=== PATIENT | male | born 1955 | race Caucasian/White ===

== ENCOUNTER → 2018-07-01 11:09 | Outpatient (BNVA) | payer MEDICARE, SELFPAY | PROVIDERS: PCP Family Medicine; Visit Provider Internal Medicine Cardiovascular Disease | DX: I25.10 Atherosclerotic heart disease of native coronary artery without angina pectoris (principal); I25.2 Old myocardial infarction; E78.5 Hyperlipidemia, unspecified; I10 Essential (primary) hypertension | CPT/HCPCS: 99213 ==

== ENCOUNTER 2018-08-04 19:48 | Outpatient (REF) | payer MEDICARE, SELFPAY ==
[2018-08-04 22:18] LABS: Cholesterol 108 mg/dL (50-200); HDL Cholesterol 35 mg/dL (40-60); LDL CHOLESTEROL 66 mg/dL (<100); Triglyceride 51 mg/dL (30-150)
== END 2018-08-04 20:08 ==
LOC: NCHCN 19:48
PROVIDERS: PCP Family Medicine; Visit Provider Family Medicine
DX: E78.5 Hyperlipidemia, unspecified (principal)
CPT/HCPCS: 80061; 83721

== ENCOUNTER 2018-10-21 13:49 | Outpatient (REF) | payer MEDICARE, SELFPAY ==
[2018-10-21 22:31] LABS: ALT 29 U/L (12-78); AST 20 U/L (15-37); Albumin 3.6 g/dL (3.4-5.0); Alkaline Phosphatase 89 U/L (46-116); Anion Gap 9.5 mmol/L (3-11); BUN 15 mg/dL (7-18); Bilirubin, Total 0.3 mg/dL (0.2-1.0); CO2 24.5 mmol/L (21.0-32.0); CREATININE 0.89 mg/dL (0.70-1.30); Calcium 9.2 mg/dL (8.5-10.1); Chloride 106 mmol/L (98-107); Glucose 102 mg/dL (70-100); Potassium 4.7 mmol/L (3.5-5.1); Sodium 140 mmol/L (136-145); TSH (W/Ref FT4) 2.29 uIU/mL (0.358-3.74); Total Protein 7.1 g/dL (6.4-8.2); Vitamin B12 650 pg/mL (193-986)
== END 2018-10-21 14:09 ==
LOC: NCHCN 13:49
PROVIDERS: PCP Family Medicine; Visit Provider Family Medicine
DX: G56.00 Carpal tunnel syndrome, unspecified upper limb (principal); E78.5 Hyperlipidemia, unspecified; I25.10 Atherosclerotic heart disease of native coronary artery without angina pectoris; M54.5 Low back pain
CPT/HCPCS: 80053; 82607; 84443

== ENCOUNTER → 2019-07-07 10:47 | Outpatient (BNVA) | payer MEDICARE, SELFPAY | PROVIDERS: PCP Family Medicine; Referring Provider Family Medicine; Visit Provider Internal Medicine Cardiovascular Disease | DX: I25.10 Atherosclerotic heart disease of native coronary artery without angina pectoris (principal); I10 Essential (primary) hypertension; F17.290 Nicotine dependence, other tobacco product, uncomplicated; E78.5 Hyperlipidemia, unspecified | CPT/HCPCS: 99214 ==

== ENCOUNTER 2020-02-20 13:04 | Outpatient (CLI) | payer OTHER, SELFPAY ==
--- NOTE | 2020-02-20 11:15 | DI.RAD_ITS ---
EXAM: XR KNEE RT 3V AP,LAT,MALICK CLINICAL HISTORY: RIGHT KNEE PAIN. TECHNIQUE: 2D digital imaging was performed. COMPARISON: No exams were available for comparison FINDINGS: There is periarticular spurring of the posterior patella. The articular surfaces are otherwise well maintained. Bones are normally mineralized and intact. Vascular calcifications are seen in the soft tissues. No significant joint effusion is seen. IMPRESSION: Mild degenerative changes of the right knee. DATA REPOSITORY: RADIATION DOSE DELIVERED:
== END 2020-02-20 13:24 ==
PROVIDERS: PCP Family Medicine; Referring Provider Family Medicine; Visit Provider Student in an Organized Health Care Education/Training Program
DX: M25.561 Pain in right knee (principal); M17.11 Unilateral primary osteoarthritis, right knee; S83.8X1A Sprain of other specified parts of right knee, initial encounter; X58.XXXA Exposure to other specified factors, initial encounter
CPT/HCPCS: 73562; 99214

== ENCOUNTER → 2020-02-21 11:01 | Outpatient (BNVA) | payer OTHER, SELFPAY | PROVIDERS: PCP Family Medicine; Referring Provider Family Medicine; Visit Provider Internal Medicine Cardiovascular Disease | DX: I25.10 Atherosclerotic heart disease of native coronary artery without angina pectoris (principal); I10 Essential (primary) hypertension; G47.33 Obstructive sleep apnea (adult) (pediatric) | CPT/HCPCS: 99214 ==

== ENCOUNTER 2020-03-09 08:31 | Outpatient (REF) | payer OTHER, SELFPAY ==
[2020-03-09 19:09] LABS: Chloride 100 mmol/L (98-107)
[2020-03-09 19:44] LABS: Anion Gap 10.3 mmol/L (3-11); BUN 15 mg/dL (7-18); CO2 24.7 mmol/L (21.0-32.0); CREATININE 1.01 mg/dL (0.70-1.30); Calcium 8.9 mg/dL (8.5-10.1); Glucose 105 mg/dL (74-106); Potassium 4.2 mmol/L (3.5-5.1); Sodium 135 mmol/L (136-145)
== END 2020-03-09 08:51 ==
LOC: NCHCN 08:31
PROVIDERS: PCP Family Medicine; Visit Provider Family Medicine
DX: Z79.899 Other long term (current) drug therapy (principal)
CPT/HCPCS: 80048

== ENCOUNTER 2020-03-30 02:40 | Outpatient (CLI) | payer OTHER, SELFPAY ==
--- NOTE | 2020-03-30 08:50 | DI.MRI_ITS ---
EXAM: MR LOWER JOINT RT WO CLINICAL HISTORY: internal derangement right knee,m23.91. TECHNIQUE: Multiplanar multisequence MRI was performed. COMPARISON: MR MRI L LOWER JOINT WO CONT from 03/05/2017 CR XR KNEE RT 3V AP,LAT,MALICK from 02/20/2020 FINDINGS: There is a moderate-sized joint effusion. There is mild edema in the fat anterior to the patella and patellar tendon. There is no evidence of fracture. The extensor mechanism appears intact. There i s mild edema the near the tibial attachment of the anterior cruciate ligament but no evidence of a fu ll-thickness tear. The posterior cruciate ligament and lateral collateral ligament complex appear in tact. There is edema around the medial collateral ligament but no focal tear. There is a horizontal , inferior surfacing tear of the posterior horn and body of the medial meniscus. There is blunting o f the apex of the posterior horn. The lateral meniscus appears intact. There is no bone contusion. There is thinning of the cartilage at the patellar apex and medial facet, extending down to bone.. IMPRESSION: Inferior surfacing tear of the posterior horn and body of the medial meniscus. Anterior cruciate lig ament and medial collateral ligament sprains. Chondromalacia of the patella. DATA REPOSITORY:
== END 2020-03-30 03:00 ==
PROVIDERS: PCP Family Medicine; Visit Provider Student in an Organized Health Care Education/Training Program
DX: M23.91 Unspecified internal derangement of right knee (principal); S83.511A Sprain of anterior cruciate ligament of right knee, initial encounter; S83.411A Sprain of medial collateral ligament of right knee, initial encounter; S83.241A Other tear of medial meniscus, current injury, right knee, initial encounter
CPT/HCPCS: 73721

== ENCOUNTER → 2020-04-16 08:07 | Outpatient (BNVA) | payer OTHER, SELFPAY | PROVIDERS: PCP Family Medicine; Visit Provider Student in an Organized Health Care Education/Training Program | DX: M25.561 Pain in right knee (principal); S83.241D Other tear of medial meniscus, current injury, right knee, subsequent encounter; X58.XXXD Exposure to other specified factors, subsequent encounter; I10 Essential (primary) hypertension | CPT/HCPCS: 99213 ==

== ENCOUNTER 2020-04-18 22:37 | Outpatient (REF) | payer OTHER, SELFPAY ==
[2020-04-18 21:37] LABS: Abs Immature Grans 0.03 10^3/uL (0.0-0.06); Absolute Basophil Count 0.07 10^3/uL (0.0-0.2); Absolute Lymphocyte Count 1.76 10^3/uL (1.2-3.4); Absolute Monocyte Count 0.61 10^3/uL (0.1-0.8); Basophils % 0.9; Eosinophils % 3.8; HCT 42.9 % (40.0-50.0); Immature Grans % 0.4; Lymphocytes % 22.4; MCH 29.4 pg (27.0-33.0); MCHC 32.6 % (32.0-36.0); MCV 89.9 fL (80-95); MPV 12.7 fL (8.0-11.0); Monocytes % 7.8; Neutrophils % 64.7; Nucleated RBC 0 %; Platelet Count 183 10^3/uL (130-400); RBC 4.77 10^6/uL (4.36-5.78); RDW 12.7 % (11.8-14.1); RDW-SD 41.9 fL; WBC 7.87 10^3/uL (4.4-10.8)
[2020-04-18 21:52] LABS: ALT 30 U/L (16-63); AST 21 U/L (15-37); Albumin 3.8 g/dL (3.4-5.0); Alkaline Phosphatase 83 U/L (46-116); Anion Gap 12.4 mmol/L (3-11); BUN 18 mg/dL (7-18); Bilirubin, Total 0.3 mg/dL (0.2-1.0); CO2 25.6 mmol/L (21.0-32.0); CREATININE 0.91 mg/dL (0.70-1.30); Chloride 103 mmol/L (98-107); Glucose 133 mg/dL (74-106); Sodium 141 mmol/L (136-145)
== END 2020-04-18 22:57 ==
LOC: NCHCN 22:37
PROVIDERS: PCP Family Medicine; Visit Provider Physician Assistant Medical
DX: M25.561 Pain in right knee (principal); Z01.818 Encounter for other preprocedural examination
CPT/HCPCS: 80053; 85025

== ENCOUNTER 2020-05-04 03:45 | Outpatient (CLI) | payer OTHER, SELFPAY ==
[2020-05-06 18:00] LABS: COVID-19 RT-PCR Result NEGATIVE (Negative)
== END 2020-05-04 04:05 ==
PROVIDERS: PCP Family Medicine; Visit Provider Student in an Organized Health Care Education/Training Program
DX: S83.241A Other tear of medial meniscus, current injury, right knee, initial encounter (principal)
CPT/HCPCS: U0003

== ENCOUNTER 2020-05-09 09:13 | Day surgery (SDC) | payer OTHER, SELFPAY ==
[2020-05-09] VITALS (9 sets, daily range): BP systolic 121–187; BP diastolic 54–110; PULSE 53–63; RESP 9–18; TEMP 36.2–36.5; O2SAT 95–100
[2020-05-09] MEDS: Bupivacaine 0.25% Pres-Free 10 ML VIAL (02:45)
[2020-05-09] MEDS: Lactated Ringers 1,000 ML 80 ML IV (10:05)
--- NOTE | 2020-05-09 11:12 | W.PM.DSUDISC ---
Discharge Plan Disposition Patient Disposition: HOME Condition: Good Discharge Details Reason For Visit: Right Knee Medial Meniscus Tear Attending Provider: Daniel Marroquin Primary Care Provider: Karen Aguilar V Home Meds and New Rx's Prescriptions: New acetaminophen 500 mg tablet 1,000 mg PO Q8H PRN (Reason: pain) Qty: 90 RF: 3 ibuprofen 600 mg tablet 600 mg PO TID PRNQty: 90 RF: 3 oxycodone 10 mg tablet 10 mg PO Q4H PRNQty: 18 RF: 0 Continued furosemide 20 mg tablet 20 mg PO DAILY Qty: 90 RF: 6 metoprolol succinate 50 MG tablet extended release 24 hr 50 mg PO HS Qty: 30 RF: 6 lisinopril 2.5 MG tablet 2.5 mg PO HS Qty: 30 RF: 6 nitroglycerin [Nitrostat] 0.4 MG tablet, sublingual 0.4 mg Sublingual ONCE RF: 0 aspirin 81 MG tablet,chewable 81 mg PO DAILY Qty: 90 RF: 4 methadone 10 mg tablet 10 mg PO QID RF: 0 oxycodone 15 mg tablet 15 mg PO 6X/DAY RF: 0 rosuvastatin [Crestor] 10 MG tablet 10 mg PO HS RF: 0 Discontinued alprazolam 0.5 mg tablet 0.5 mg PO ONCE PRN (Reason: claustrophobia) Qty: 2 RF: 0 ibuprofen 800 MG tablet 400 mg PO PRN PRNRF: 0 Discharge Instructions Stand Alone Forms: [facility] Referrals: Daniel Marroquin MD [ [facility] STAFF PHYSICIAN] - Equipment/Supplies: Partial Weight Bearing Crutches Activity:: Elevate Remove Dressings/Wound Care:: 72 hours Shower/Bathe:: 72 hours Diet:: As Tolerated Discharge Orders Discharge Orders: Discharge Order (Routine); Ordered 05/09/20 Ordered By: Daniel Marroquin DS: Diagnosis Discharge Diagnosis (1) Tear of medial meniscus of right knee: Status: Acute
[2020-05-09] MEDS: ceFAZolin 3,000 MG in Normal Saline 100 ML 200 MG IVPB (12:45)
[2020-05-09] MEDS: Bupivacaine 0.5% Pres-Free 30 ML VIAL (13:28)
[2020-05-09] MEDS: HYDROmorphone 2 MG/ML VIAL IVP (14:05)
[2020-05-09] MEDS: Methadone 10 MG TAB PO (14:21)
--- NOTE | 2020-05-09 19:29 | W.PM.OP ---
Date of service: 05/09/20 Time of Service: 13:44 Operative Note Operative Note DATE OF PROCEDURE: 05/09/20 PRE-OP DIAGNOSIS: Right knee medial meniscus tear POST-OP DIAGNOSIS: same PROCEDURE: Right knee arthroscopic partial medial meniscectomy SURGEON: Daniel Marroquin ANESTHESIA: GETA ESTIMATED BLOOD LOSS: 0 PATHOLOGY: none sent TOURNIQUET TIME: 0 COMPLICATIONS: None Patient was transported to: PACU Patient's condition: stable Indications: I have seen Philippe in clinic for symptoms of a meniscus tear. This was confirmed based on MRI and exam findings. Nonoperative measures were exhausted but disability and pain persisted. I discussed knee arthroscopy with meniscal intervention with the patient. I reviewed the risks of the procedure to include, but not limited to, bleeding, infection, pain, stiffness, damage to nerves or vessels, recurrence, blood clot. Despite these risks, the patient elected to proceed. Findings: A diagnostic arthroscopy was performed with the following findings: Suprapatellar Pouch: No significant inflammation, No loose bodies Medial Compartment: Complex medial meniscal tear with involvement of the root, partially intact meniscal root, Grade II chondromalacia, No loose bodies Notch: ACL and PCL were intact Lateral Compartment: No meniscal tear, Intact meniscal root, Grade I chondromalacia, No loose bodies Patellofemoral Compartment: No significant chondromalacia, No apparent patellar maltracking Procedure Description: Philippe was greeted in the preoperative holding area where the correct side was identified and marked. The consent was reviewed with the patient and signed. The history and physical was updated. All questions were answered. Philippe was taken back to the operating room. The patient was placed into the supine position on the operating room table. A nonsterile tourniquet was placed high onto the leg but not used. All bony prominences were well padded. Prophylactic antibiotics in the form of Cefazolin were administered. The right leg was then prepped with Chloraprep and draped in a standard fashion with stockinette and extremity drape. A timeout to confirm correct identity, side and site, procedure, allergies, anesthesia, and medical concerns was performed. The leg was placed into a pneumatic leg hill, [id number]. A standard lateral portal was made at the lateral border of the patella tendon in line with the inferior pole of the patella, soft spot. The skin and deep tissue was incised sharply and the blunt trochar was inserted atraumatically. A diagnostic arthroscopy was performed and the findings are listed above. The suprapatellar pouch had no significant inflammatory change. The patellofemoral articulation showed no articular damage as well as good tracking. The lateral gutter had no loose bodies and the medial gutter had no loose bodies and a small peripheral osteophyte. The knee was brought into some valgus stress in extension to open the medial compartment. A medial portal was made, localized by a spinal needle. The portal was created with an #11 blade through skin and capsule under direct visualization avoiding any meniscal injury. A probe was then inserted into the medial compartment. The medial compartment was fully inspected. The chondral surface of the tibia showed Grade II chondromalacia and the surface of the femur showed Grade I chondromalacia. The medial meniscus had a complex tear involving the horn and root with a large displaced fragment posteriorly. After evaluation, the meniscus was debrided down to a stable base using a series of biters and arthroscopic debra. It was probed afterwards to confirm that the tear had been removed and the meniscus was stable. The notch was then inspected which showed an intact ACL and an intact PCL. The leg was then brought into a figure of 4 position. The lateral compartment was fully inspected with the arthroscope and a probe. The chondral surface of the lateral femur showed no significant chondromalacia. The chondral surface of the lateral tibia showed no significant chondromalacia. The lateral meniscus had no meniscal tear. Cartilage surfaces were debrided of any flaps, leaving any intact fibers. The arthroscope was brought back into the suprapatellar pouch and the leg was in full extension. The knee was thoroughly irrigated with the arthroscopic fluid on high flow and pressure. Inflow was stopped and excess fluid was removed. The wounds were closed with 4-0 Nylon. They were dressed with Xeroform, 4x4 gauze, ABD pad, Kerlix and an RONIT wrap. A cryo-cuff was applied. The patient tolerated the procedure well and was returned to the Same Day Surgery area in a stable condition suffering no known complication.
== END 2020-05-09 16:06 | disposition home or self-care (01) ==
PROVIDERS: PCP Family Medicine; Visit Provider Student in an Organized Health Care Education/Training Program
PROC: (CPT 29870; principal; 2020-05-09 11:15)
DX: S83.241A Other tear of medial meniscus, current injury, right knee, initial encounter (principal); F17.210 Nicotine dependence, cigarettes, uncomplicated; G47.33 Obstructive sleep apnea (adult) (pediatric)
CPT/HCPCS: 29881; 76942; J0690; J1100; J1885

== ENCOUNTER → 2020-06-18 08:00 | Outpatient (BNVA) | payer OTHER, SELFPAY | PROVIDERS: PCP Family Medicine; Referring Provider Family Medicine; Visit Provider Student in an Organized Health Care Education/Training Program | DX: S83.241D Other tear of medial meniscus, current injury, right knee, subsequent encounter (principal); X58.XXXD Exposure to other specified factors, subsequent encounter; Z98.890 Other specified postprocedural states; I10 Essential (primary) hypertension ==

== ENCOUNTER → 2020-10-15 11:19 | Outpatient (BNVA) | payer OTHER, SELFPAY | PROVIDERS: PCP Family Medicine; Referring Provider Family Medicine; Visit Provider Internal Medicine Cardiovascular Disease | DX: I10 Essential (primary) hypertension (principal); I25.10 Atherosclerotic heart disease of native coronary artery without angina pectoris | CPT/HCPCS: 99214; 99442 ==

== ENCOUNTER 2021-03-01 08:52 | Outpatient (REF) | payer OTHER, SELFPAY ==
[2021-03-01 14:47] LABS: Hemoglobin A1C 6.2 % (<5.7)
[2021-03-01 14:52] LABS: ALT 33 U/L (16-63); AST 20 U/L (15-37); Albumin 3.7 g/dL (3.4-5.0); Alkaline Phosphatase 97 U/L (46-116); Anion Gap 10.7 mmol/L (3-11); BUN 24 mg/dL (7-18); Bilirubin, Total 0.3 mg/dL (0.2-1.0); CO2 24.3 mmol/L (21.0-32.0); Calcium 8.7 mg/dL (8.5-10.1); Calculated LDL 79 mg/dL (<100); Chloride 104 mmol/L (98-107); Cholesterol 128 mg/dL (<200); Glucose 108 mg/dL (74-106); HDL Cholesterol 26 mg/dL (40-60); Potassium 4.7 mmol/L (3.5-5.1); Sodium 139 mmol/L (136-145); Total Protein 7.1 g/dL (6.4-8.2); Triglyceride 118 mg/dL (<150)
[2021-03-07 16:47] LABS: Testosterone, Free 2.48 ng/dL (3.67-13.9); Testosterone, Total 99 ng/dL (240-950)
== END 2021-03-01 08:53 | disposition home or self-care (01) ==
LOC: NCHCN 08:52
PROVIDERS: PCP Family Medicine; Visit Provider Family Medicine
DX: I25.10 Atherosclerotic heart disease of native coronary artery without angina pectoris (principal); M54.5 Low back pain; G89.29 Other chronic pain; E78.5 Hyperlipidemia, unspecified
CPT/HCPCS: 80053; 80061; 84402; 84403; 83036

== ENCOUNTER 2021-11-08 16:42 | Outpatient (REF) | payer OTHER, SELFPAY ==
[2021-11-08 14:59] LABS: ALT 34 U/L (16-63); AST 22 U/L (15-37); Alkaline Phosphatase 105 U/L (46-116); Anion Gap 11.9 mmol/L (3-11); BUN 18 mg/dL (7-18); Bilirubin, Total 0.4 mg/dL (0.2-1.0); CO2 22.1 mmol/L (21.0-32.0); CREATININE 0.9 mg/dL (0.70-1.30); Calcium 9.3 mg/dL (8.5-10.1); Chloride 104 mmol/L (98-107); Glucose 108 mg/dL (74-106); Potassium 4.7 mmol/L (3.5-5.1); Sodium 138 mmol/L (136-145); Total Protein 7.5 g/dL (6.4-8.2)
== END 2021-11-08 16:43 | disposition home or self-care (01) ==
LOC: NCHCN 16:42
PROVIDERS: PCP Family Medicine; Visit Provider Family Medicine
DX: R73.03 Prediabetes (principal); E78.5 Hyperlipidemia, unspecified; I25.10 Atherosclerotic heart disease of native coronary artery without angina pectoris; M54.59 Other low back pain
CPT/HCPCS: 80053; 83036

== ENCOUNTER 2021-11-08 17:36 | Outpatient (REF) | payer OTHER, SELFPAY | END 2021-11-08 17:37 | disposition home or self-care (01) | LOC: NCHCN 17:36 | PROVIDERS: PCP Family Medicine; Visit Provider Family Medicine ==

== ENCOUNTER → 2022-01-10 09:23 | Outpatient (BNVA) | payer OTHER, SELFPAY | PROVIDERS: PCP Family Medicine; Referring Provider Family Medicine; Visit Provider Physical Therapy Assistant | DX: K59.00 Constipation, unspecified (principal); K62.5 Hemorrhage of anus and rectum | CPT/HCPCS: 99213 ==

== ENCOUNTER → 2022-06-13 08:57 | Outpatient (BNVA) | payer OTHER, SELFPAY | PROVIDERS: PCP Family Medicine; Referring Provider Family Medicine; Visit Provider Internal Medicine Cardiovascular Disease | DX: I25.10 Atherosclerotic heart disease of native coronary artery without angina pectoris (principal); I10 Essential (primary) hypertension; E78.5 Hyperlipidemia, unspecified | CPT/HCPCS: 99214; 99443 ==

== ENCOUNTER 2022-10-23 16:45 | Outpatient (REF) | payer OTHER, SELFPAY ==
[2022-10-23 18:59] LABS: HCT 38.5 % (40.0-50.0); HGB 12.3 g/dL (13.5-17.5); MCH 27.7 pg (27.0-33.0); MCHC 31.9 % (32.0-36.0); MCV 87 fL (80-95); MPV 11.5 fL (8.0-11.0); Platelet Count 266 10^3/uL (130-400); RBC 4.44 10^6/uL (4.36-5.78); RDW 14.3 % (11.8-14.1); RDW-SD 45.2 fL; WBC 9.81 10^3/uL (4.4-10.8)
[2022-10-23 19:01] LABS: ESR 72 mm/hr (0-20)
[2022-10-23 19:16] LABS: Hemoglobin A1C 6.1 % (<5.7)
[2022-10-23 19:18] LABS: ALT 25 U/L (16-63); AST 18 U/L (15-37); Albumin 3.3 g/dL (3.4-5.0); Alkaline Phosphatase 86 U/L (46-116); Anion Gap 4.3 mmol/L (3-11); BUN 19 mg/dL (7-18); Bilirubin, Total 0.3 mg/dL (0.2-1.0); C-Reactive Protein 5.13 mg/dL (0.0-0.3); CO2 26.7 mmol/L (21.0-32.0); CREATININE 0.9 mg/dL (0.70-1.30); Calcium 8.9 mg/dL (8.5-10.1); Chloride 100 mmol/L (98-107); Creatine Kinase 97 U/L (39-308); Estimated GFR 94.19 (mL/min/1.73m2); Glucose 118 mg/dL (74-106); Potassium 3.7 mmol/L (3.5-5.1); Sodium 131 mmol/L (136-145); TSH (W/Ref FT4) 1.72 uIU/mL (0.36-3.74); Total Protein 7.8 g/dL (6.4-8.2)
[2022-10-23 19:56] LABS: Vitamin B12 419 pg/mL (193-986)
[2022-10-25 22:10] LABS: Rheumatoid Factor <8.6 IU/mL (<12.0)
[2022-10-27 08:24] LABS: Lyme Ab w Rflx to Lyme Confirm Negative (Negative)
[2022-10-27 11:05] LABS: PSA, Screening 0.3 ng/mL (<=4.5)
[2022-10-27 14:53] LABS: ANA Interpretation Negative (Negative)
[2022-10-27 16:51] LABS: Anaplasma phagocytophilum Negative (Negative); B. miyamotoi PCR Negative (Negative); Babesia divergens/MO-1 Negative (Negative); Babesia duncani Negative (Negative); Babesia microti Negative (Negative); Ehrlichia chaffeensis Negative (Negative); Ehrlichia ewingii/canis Negative (Negative); Ehrlichia muris eauclairensis Negative (Negative)
[2022-10-29 15:02] LABS: Albumin 49.6 % (55.8-66.1); Albumin g/dL 3.6 g/dL (3.6-5.2); Comment (See Note); Total Protein 7.2 g/dL (6.3-8.2)
[2022-10-29 15:52] LABS: Immunotyping, Serum (See Note)
== END 2022-10-23 16:46 | disposition home or self-care (01) ==
LOC: NCHCN 16:45
PROVIDERS: PCP Family Medicine; Visit Provider Family Medicine
DX: M79.10 Myalgia, unspecified site (principal); M89.9 Disorder of bone, unspecified
CPT/HCPCS: 80053; 82550; 84153; 85027; 85652; 87798; 82607; 83036; 84165; 84443; 86038; 86140; 86320; 86431; 86618

== ENCOUNTER 2023-02-20 13:54 | Outpatient (REF) | payer OTHER, SELFPAY ==
[2023-02-20 15:14] LABS: ESR 31 mm/hr (0-20)
[2023-02-20 15:35] LABS: Hemoglobin A1C 6.4 % (<5.7)
== END 2023-02-20 13:55 | disposition home or self-care (01) ==
LOC: NCHCN 13:54
PROVIDERS: PCP Family Medicine; Visit Provider Family Medicine
DX: M35.3 Polymyalgia rheumatica (principal); R06.09 Other forms of dyspnea; R73.03 Prediabetes
CPT/HCPCS: 85652; 83036; 86140

== ENCOUNTER 2023-02-26 01:17 | Outpatient (CLI) | payer OTHER, SELFPAY ==
--- NOTE | 2023-02-26 09:15 | DI.NM_ITS ---
APPROVED REPORT Exam: Pharmacologic Patient Location: Out-Patient Room/Bed: Stress Nurse: Darlyn Rodriguez RN Ordering Provider:SIERRA BECKMANANDREW, Contact Number: [phone] BMI: 44.29 Baseline Rhythm: Sinus Bradycardia Indications: PANIAGUA Medical History Medical History: HTN, prediabetes, CAD, CHARLY, dizziness, vertigo, hypotestosteronism, dyslipidemia, GE RD, R knee pain, NSTEMI Cardiac Medications: Rosuvastatin, oxycodone, nitro, metoprolol succinate, methadone, meclizine, amaury nopril, aspririn Allergies: Varenciline tartrate, fentanyl Cardiac Risk Factors: Family hx, HTN, HLD, CVD, prediabetesm smoker (vape), obesity Previous Cardiac Procedures: Cardiac cath with stents x3 Pretest Chest Pain Characteristics: None Exercise History: None Physical Disabilities: None Lung Sounds: Clear to auscultation Heart Sounds: Regular Stress Test Details Test: Exercise stress converted to pharmacologic stress due to failure to obtain a diagnostic stres s test. Reason for pharmacologic stress test: changed from exercise stress test due to inability to reach t arget heart rate. Nuclear Acquisition: Rest Tc-99m/Stress Tc-99m 1 day Rest Isotope: Tc-99m Sestamibi. Dose: 15.0 Date: 02/26/2023 Injection Time: 0920 Stress Isotope: Tc-99m Sestamibi. Dose: 45.0 Date: 02/26/2023 Injection Time: 1112 HR Resting HR Supine: 56 bpm Max Heart Rate (APMHR): 154.376697 bpm Resting HR Standin bpm Target HR (85% APMHR): 130.922928 bpm Max HR Achieved: 121 bpm % of APMHR: 78.57 Recovery HR: 71 bpm HR response to stress: Normal HR response to stress BP Resting BP Supine: 162/72 mmHg Resting BP Standin/80 mmHg Max BP: 200/90 mmHg Recovery BP: 168/74 mmHg BP response to stress: Normal blood pressure response to stress. ECG Resting ECG: Sinus Rhythm Ectopy: None Stress ECG: Sinus Tachycardia ST Change: Nondiagnostic low heart rate Arrhythmia: Couplet Recovery ECG: Sinus Rhythm Recovery ST Change: Nondiagnostic low heart rate Recovery Arrhythmia: rare PAC Clinical Reason for Termination: Dyspnea, Fatigue Stress Symptoms: General Fatigue, Dyspnea Angina Score: Non-Limiting Rate Pressure Product: [id number] Stress ECG Conclusion 1. Electrocardiogram was within normal limits. 2. Patient underwent testing using a combination of exercise and pharmacologic stress with regadenoso n 3. Peak heart rate achieved was 79% of predicted for age 4. The electrocardiographic portion of the test was nondiagnostic due to inadequate heart rate 5. See MPI report Stress Test Summary STAGE Time (mins) Speed (mph) Grade (%) HR BP SpO2 SYMPTOMS METS Supine 56 162/72 Standing 67 180/80 Mod-severe dyspnea 1 3 1.7 10 113 Mod-severe dyspnea 4.5 1 min post Lexiscan injection 121 200/90 Mod-severe dyspnea 3 min post Lexiscan injection 75 190/70 Dyspnea resolving 6 min post Lexiscan injection 71 168/74 All symptoms resolved Patient transitioned to walking lexiscan due to inability to reach target heart rate due to fatigue a nd mod-severe dyspnea. Speed decreased to 0.9 mph at a 0% grade. MPI Conclusion Myocardial perfusion is normal. There is no ischemia or evidence of prior infarction EF is 57% with normal wall motion Radiologist Interpretation Radiologist agrees with Bath Steward's Interpretation. Radiologist Interpretation by: Haley Celis MD Interpretation Date/Time: 02/26/2023 17:32:07
[2023-02-26] MEDS: Regadenoson 0.4 MG/5 ML SYR IVP (13:17)
== END 2023-02-26 01:37 ==
LOC: DI 01:17
PROVIDERS: PCP Family Medicine; Visit Provider Family Medicine
DX: R06.09 Other forms of dyspnea (principal)
CPT/HCPCS: 78452; 93016; 93018; 93017; J2785

== ENCOUNTER 2023-05-22 14:14 | Outpatient (REF) | payer OTHER, SELFPAY ==
[2023-05-22 15:52] LABS: ESR 42 mm/hr (0-20)
[2023-05-22 16:08] LABS: C-Reactive Protein 0.98 mg/dL (0.0-0.3)
== END 2023-05-22 14:15 | disposition home or self-care (01) ==
LOC: NCHCN 14:14
PROVIDERS: PCP Family Medicine; Visit Provider Family Medicine
DX: M35.3 Polymyalgia rheumatica (principal); R79.82 Elevated C-reactive protein (CRP)
CPT/HCPCS: 85652; 86140

== ENCOUNTER 2023-06-25 07:58 | Outpatient (CLI) | payer OTHER, SELFPAY ==
--- NOTE | 2023-06-25 07:45 | RT.EKG_ITS ---
APPROVED REPORT Exam: Resting ECG Reason for Exam: CAD Patient Location: O HR:70 bpm ECG Measurements Heart Rate 70 AXIS NV 126 P 38 QRSd 94 QRS 44 QT 397 T 25 QTc 429 Conclusion Sinus rhythm...normal P axis, V-rate 50- 99 Normal Electrocardiogram
== END 2023-06-25 07:59 | disposition home or self-care (01) ==
LOC: DI.CARD 07:59
PROVIDERS: PCP Family Medicine; Visit Provider Internal Medicine Cardiovascular Disease
DX: I21.4 Non-ST elevation (NSTEMI) myocardial infarction (principal); I25.10 Atherosclerotic heart disease of native coronary artery without angina pectoris
CPT/HCPCS: 93010

== ENCOUNTER → 2023-06-25 09:26 | Outpatient (BNVA) | payer OTHER, SELFPAY | PROVIDERS: PCP Family Medicine; Referring Provider Family Medicine; Visit Provider Internal Medicine Cardiovascular Disease | DX: Z95.5 Presence of coronary angioplasty implant and graft (principal); I25.10 Atherosclerotic heart disease of native coronary artery without angina pectoris; I10 Essential (primary) hypertension; E78.5 Hyperlipidemia, unspecified | CPT/HCPCS: 93005; 99213 ==

== ENCOUNTER 2023-08-21 20:52 | Outpatient (REF) | payer OTHER, SELFPAY ==
[2023-08-21 15:48] LABS: ESR 36 mm/hr (0-20)
[2023-08-21 16:13] LABS: ALT 31 U/L (16-63); AST 17 U/L (15-37); Albumin 3.5 g/dL (3.4-5.0); Alkaline Phosphatase 104 U/L (46-116); Anion Gap 9.1 mmol/L (3-11); BUN 16 mg/dL (7-18); Bilirubin, Total 0.3 mg/dL (0.2-1.0); C-Reactive Protein 0.93 mg/dL (0.0-0.3); CO2 25.9 mmol/L (21.0-32.0); Calcium 8.8 mg/dL (8.5-10.1); Chloride 104 mmol/L (98-107); Estimated GFR 82.49 (mL/min/1.73m2); Glucose 119 mg/dL (74-106); Potassium 4.6 mmol/L (3.5-5.1); Sodium 139 mmol/L (136-145)
[2023-08-21 16:17] LABS: Hemoglobin A1C 6.2 % (<5.7)
== END 2023-08-21 20:53 | disposition home or self-care (01) ==
LOC: NCHCN 20:52
PROVIDERS: PCP Family Medicine; Visit Provider Family Medicine
DX: R73.03 Prediabetes (principal); I10 Essential (primary) hypertension; M35.3 Polymyalgia rheumatica
CPT/HCPCS: 80053; 85652; 83036; 86140

== ENCOUNTER 2023-11-12 17:31 | Outpatient (REF) | payer OTHER, SELFPAY ==
[2023-11-12 16:23] LABS: C-Reactive Protein 0.83 mg/dL (<or=0.5)
[2023-11-12 16:57] LABS: HCT 43.9 % (40.0-50.0); HGB 14.4 g/dL (13.5-17.5); MCHC 32.8 % (32.0-36.0); MCV 85 fL (80-95); MPV 12.3 fL (8.0-11.0); Platelet Count 182 10^3/uL (130-400); RBC 5.15 10^6/uL (4.36-5.78); RDW 14.7 % (11.8-14.1); RDW-SD 45.5 fL; WBC 8.57 10^3/uL (4.4-10.8)
[2023-11-12 17:03] LABS: Hemoglobin A1C 6.6 % (<5.7)
[2023-11-12 17:09] LABS: ESR 43 mm/hr (0-20)
[2023-11-12 21:55] LABS: Rheumatoid Factor <8.6 IU/mL (<12.0)
[2023-11-13 14:32] LABS: ANA Interpretation Positive (Negative); ANA Titer Pattern 1:80 Speckled
== END 2023-11-12 17:32 | disposition home or self-care (01) ==
LOC: NCHCN 17:31
PROVIDERS: PCP Family Medicine; Visit Provider Family Medicine
DX: M35.3 Polymyalgia rheumatica (principal); R73.03 Prediabetes
CPT/HCPCS: 85027; 85652; 83036; 86038; 86140; 86431

== ENCOUNTER 2024-02-25 14:04 | Outpatient (REF) | payer OTHER, SELFPAY ==
[2024-02-25 15:20] LABS: ESR 34 mm/hr (0-20)
[2024-02-25 15:43] LABS: C-Reactive Protein 1.05 mg/dL (<or=0.5)
[2024-02-25 16:04] LABS: Hemoglobin A1C 6.3 % (<5.7)
[2024-02-26 10:13] LABS: PSA, Screening 0.3 ng/mL (<=4.5)
== END 2024-02-25 14:05 | disposition home or self-care (01) ==
LOC: NCHCN 14:04
PROVIDERS: PCP Family Medicine; Visit Provider Family Medicine
DX: R73.03 Prediabetes (principal); M35.3 Polymyalgia rheumatica; Z12.5 Encounter for screening for malignant neoplasm of prostate
CPT/HCPCS: 84153; 85652; 83036; 86140

== ENCOUNTER 2025-01-12 11:12 | Outpatient (REF) | payer MEDICARE, SELFPAY ==
[2025-01-12 16:41] LABS: HCT 44.3 % (40.0-50.0); HGB 14.6 g/dL (13.5-17.5)
[2025-01-12 16:46] LABS: ESR 31 mm/hr (0-20)
[2025-01-12 17:31] LABS: Hemoglobin A1C 6.2 % (<5.7)
[2025-01-12 17:39] LABS: ALT 24 U/L (16-63); AST 20 U/L (15-37); Alkaline Phosphatase 109 U/L (46-116); Anion Gap 10.3 mmol/L (3-11); BUN 17 mg/dL (7-18); Bilirubin, Total 0.5 mg/dL (0.2-1.0); CO2 23.7 mmol/L (21.0-32.0); CREATININE 0.9 mg/dL (0.70-1.30); Calcium 9.1 mg/dL (8.5-10.1); Chloride 104 mmol/L (98-107); Estimated GFR 93.03 (mL/min/1.73m2); Glucose 111 mg/dL (74-106); Potassium 4.5 mmol/L (3.5-5.1); Sodium 138 mmol/L (136-145); Total Protein 7.5 g/dL (6.4-8.2)
[2025-01-12 22:45] LABS: CRP, High Sensitivity 4.98 mg/L (See Note)
== END 2025-01-12 11:13 | disposition home or self-care (01) ==
LOC: NCHCN 11:12
PROVIDERS: PCP Family Medicine; Visit Provider Family Medicine
DX: I10 Essential (primary) hypertension (principal); R10.9 Unspecified abdominal pain; Z00.00 Encounter for general adult medical examination without abnormal findings
CPT/HCPCS: 80053; 85652; 86141; 83036; 83735; 85014; 85018